=== PATIENT | male | born 1960 | race Caucasian/White ===

== ENCOUNTER → 2016-05-26 | Outpatient (CLI) | payer OTHER ==
--- NOTE | 2016-05-27 08:23 | CT ---
EXAMINATION TYPE: CT cervical spine wo con DATE OF EXAM: 05/26/2016 8:01 PM COMPARISON: 08/26/2006 HISTORY: Spinal stenosis in cervical region. Neck and left arm pain x [address] DLP: 794.00 mGycm Automated exposure control for dose reduction was used. TECHNIQUE: CT scan of the cervical spine is obtained without contrast, axial images are obtained, sa gittal and coronal reformatted images are also reviewed. FINDINGS: There is an anterior cervical fusion C4-C6. Some scoliosis is present. Degenerative disc ch anges are present. There is facet hypertrophy contributing to left foraminal narrowing C3-4. Uncovertebral joint hypertr ophy contributes to mild bilateral foraminal narrowing C4-5 uncovertebral joint hypertrophy contribut es to mild foraminal narrowing C5-6 IMPRESSION: 1. Postsurgical changes. 2. Degenerative disc changes. 3. Chronic mild foraminal narrowing upper cervical spine discussed above
== END | disposition home or self-care (01) ==
LOC: RADCTMAIN 19:25
PROVIDERS: ATTEND Neurological Surgery
DX: M99.71 Connective tissue and disc stenosis of intervertebral foramina of cervical region (principal); M50.30 Other cervical disc degeneration, unspecified cervical region; Z98.1 Arthrodesis status
CPT/HCPCS: 72125

== ENCOUNTER → 2016-06-29 | Outpatient (CLI) | payer OTHER ==
[2016-06-29 12:48] LABS: CH 31.5; CHCM 32.5; HCT 47.4 % (39.0-53.0); HDW 2.38; HGB 15.4 gm/dL (13.0-17.5); MCH 31.6 pg (25.0-35.0); MCHC 32.5 g/dL (31.0-37.0); MCV 97.3 fL (80.0-100.0); Mean Platelet Volume 7.3; RBC 4.87 m/uL (4.30-5.90); RDW 13.3 % (11.5-15.5); WBC 10.4 k/uL (3.8-10.6)
[2016-06-29 14:44] LABS: Erythrocyte Sedimentation Rate 2 mm/hr (0-15)
--- NOTE | 2016-06-29 17:34 | MR ---
EXAMINATION TYPE: MR thoracic spine wo/w con DATE OF EXAM: 06/29/2016 1:53 PM COMPARISON: Correlation MRI cervical spine 09/26/2009 and 01/06/2016 HISTORY: 55-year-old male other spondylosis with radiculopathy, thoracic spine pain. Technique: Multiplanar, multisequence images of the thoracic spine were obtained before and after adm inistration of 15 mL intravenous MultiHance gadolinium contrast. FINDINGS: There is extensive central T2 cord signal abnormality extending contiguously from the cervical spinal cord down to the T9-T10 level. This abnormal signal appears well-defined and most of the spinal cord mildly expanding it given the caliber change at the T10 level. There is a small disc herniation at T7-T8 with associated mixed Modic type I and type II endplate solomon nges anteriorly at this level. This does not contribute to any significant spinal canal stenosis. Add itional scattered small disc protrusions are present, again, not contributing to significant spinal c anal stenosis. Along with scattered facet degenerative change, there is variable mild neuroforaminal stenoses, moder ate at some levels such as on both sides at T7-T8. Scattered endplate Schmorl's nodes are present. No suspicious bone marrow placement. Vertebral body h eights are preserved and alignment is maintained. The post contrast series shows no abnormal enhancement within the spinal canal. The area of increased T2 signal shows low T1 postcontrast signal. There is a 8 mm T2 hyperintense lesion within the right lobe of thyroid gland incidentally seen. IMPRESSION: 1. Extensive central T2 cord signal abnormality extending contiguously from the cervical spine down t o the T9-T10 level. This mildly expands the cord given the caliber change at the T10 level. There is no associated enhancement. Findings are suspected to represent a syrinx probably due to canal stenosi s within the cervical spine. Clinical correlation recommended given the differential diagnosis provid ed on 01/06/2016. 2. Scattered spondylotic change within the cervical spine, greatest at T8-T9 where there is mixed Mod ic type I and type II endplate change and moderate neuroforaminal stenoses. No spinal canal stenosis.
== END | disposition home or self-care (01) ==
LOC: RADMRIMAIN 12:17
PROVIDERS: ATTEND Physician Assistant
DX: M99.72 Connective tissue and disc stenosis of intervertebral foramina of thoracic region (principal); M47.814 Spondylosis without myelopathy or radiculopathy, thoracic region; M50.30 Other cervical disc degeneration, unspecified cervical region; M47.22 Other spondylosis with radiculopathy, cervical region; G95.89 Other specified diseases of spinal cord; Z98.1 Arthrodesis status
CPT/HCPCS: 85652; 85027; 86140; 72157; A9577

== ENCOUNTER → 2016-09-16 | Outpatient (CLI) | payer OTHER ==
[2016-09-16 14:33] LABS: Basophils # (A) 0.1 k/uL (0-0.2); Basophils % (A) 1 %; CHCM 34.6; Eosinophils # (A) 0.3 k/uL (0-0.7); Eosinophils % (A) 3 %; HCT 45.7 % (39.0-53.0); HDW 2.54; HGB 15.6 gm/dL (13.0-17.5); Luc # (Auto) 0.21; Luc % (Auto) 3; Lymphocytes % (A) 37 %; MCH 31.7 pg (25.0-35.0); MCHC 34.1 g/dL (31.0-37.0); MCV 92.8 fL (80.0-100.0); Mean Platelet Volume 6.8; Monocytes # (A) 0.5 k/uL (0-1.0); Monocytes % (A) 7 %; Neutrophils # (A) 4.1 k/uL (1.3-7.7); Neutrophils % (A) 50 %; RBC 4.92 m/uL (4.30-5.90); RDW 13.6 % (11.5-15.5); WBC 8.1 k/uL (3.8-10.6); WBC (Perox) 7.59
[2016-09-16 14:45] LABS: ALT 36 U/L (21-72); AST 21 U/L (17-59); Alkaline Phosphatase 59 U/L (38-126); Anion Gap 12 mmol/L; Blood Urea Nitrogen 12 mg/dL (9-20); Calcium 9.6 mg/dL (8.4-10.2); Carbon Dioxide 27 mmol/L (22-30); Chloride 102 mmol/L (98-107); Glucose 101 mg/dL (74-99); INR 1.1 (<1.1); Non-African American GFR(MDRD) >60 (>60 ml/min/1.73 sqM); Partial Thromboplastin Time 25.6 sec (22.0-30.0); Potassium 4.3 mmol/L (3.5-5.1); Prothrombin Time 11.3 sec (9.0-12.0); Sodium 141 mmol/L (137-145); Total Bilirubin 1.1 mg/dL (0.2-1.3); Total Protein 7.5 g/dL (6.3-8.2)
[2016-09-20 06:31] LABS: Cotinine 180.1 ng/mL (<2.0); Nicotine 17.1 ng/mL (<2.0)
== END | disposition home or self-care (01) ==
LOC: LABWHC1 13:51
PROVIDERS: ATTEND Family Medicine
DX: Z01.812 Encounter for preprocedural laboratory examination (principal)
CPT/HCPCS: 36415; 80053; 80307; 80323; 85025; 85610; 85730

== ENCOUNTER → 2016-09-24 | Outpatient (CLI) | payer OTHER ==
[2016-09-24 14:52] LABS: Appearance,Urine Clear (Clear); Bilirubin,Urine Negative (Negative); Glucose,Urine (UA) Negative (Negative); Ketones,Urine Negative (Negative); Leukocyte Esterase,Urine Negative (Negative); Nitrite,Urine Negative (Negative); Protein,Urine Negative (Negative); Specific Gravity,Urine 1.004 (1.001-1.035); UA Billing (MACRO vs. MICRO) CHEM; Urobilinogen,Urine <2.0 mg/dL (<2.0)
== END | disposition home or self-care (01) ==
LOC: LABWHC1 14:19
PROVIDERS: ATTEND Orthopaedic Surgery
DX: Z01.812 Encounter for preprocedural laboratory examination (principal)
CPT/HCPCS: 81003; 86850; 86900; 86901; 87070; 87086

== ENCOUNTER 2017-12-24 11:25 | Observation (INO) | payer MEDICARE, OTHER ==
[2017-12-24] MEDS ORDERED: SODIUM CHLORIDE 0.9% 1,000 ML IV ONE (12:29)
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
[2017-12-24 12:43] LABS: Appearance,Urine Clear (Clear); Bilirubin,Urine Negative (Negative); Blood,Urine Negative (Negative); Color,Urine Light Yellow; Glucose,Urine (UA) Negative (Negative); Ketones,Urine Negative (Negative); Leukocyte Esterase,Urine Negative (Negative); Nitrite,Urine Negative (Negative); Protein,Urine Negative (Negative); Specific Gravity,Urine 1.003 (1.001-1.035); Urobilinogen,Urine <2.0 mg/dL (<2.0)
[2017-12-24 12:43] LABS: Basophils # (A) 0.1 k/uL (0-0.2); Basophils % (A) 0 %; Eosinophils # (A) 0.2 k/uL (0-0.7); Eosinophils % (A) 2 %; HCT 49.3 % (39.0-53.0); HGB 15.9 gm/dL (13.0-17.5); Lymphocytes # (A) 1.8 k/uL (1.0-4.8); Lymphocytes % (A) 14 %; MCH 30.6 pg (25.0-35.0); MCHC 32.3 g/dL (31.0-37.0); MCV 94.7 fL (80.0-100.0); Monocytes # (A) 0.9 k/uL (0-1.0); Monocytes % (A) 7 %; Neutrophils # (A) 10.1 k/uL (1.3-7.7); Neutrophils % (A) 76 %; Platelet Count 395 k/uL (150-450); RBC 5.21 m/uL (4.30-5.90); RDW 13.6 % (11.5-15.5); WBC 13.4 k/uL (3.8-10.6)
[2017-12-24 12:54] LABS: Amphetamine Screen,Urine Not Detected (NotDetected); Barbiturate Screen,Urine Not Detected (NotDetected); Benzodiazepines Screen,Urine Detected (NotDetected); Cocaine Screen,Urine Not Detected (NotDetected); Methadone Screen, Urine Not Detected (NotDetected); Opiate Screen,Urine Not Detected (NotDetected); Oxycodone Screen, Urine Not Detected (NotDetected); Phencyclidine Screen,Urine Not Detected (NotDetected); Tricyclic Antidepressant,Urine Not Detected (NotDetected); Urn Cannabinoid Scrn Detected (NotDetected)
[2017-12-24 12:59] LABS: ALT 28 U/L (21-72); AST 23 U/L (17-59); Albumin 4.6 g/dL (3.5-5.0); Alcohol <10 mg/dL; Alkaline Phosphatase 85 U/L (38-126); Anion Gap 11 mmol/L; Blood Urea Nitrogen 6 mg/dL (9-20); Calcium 9.8 mg/dL (8.4-10.2); Carbon Dioxide 27 mmol/L (22-30); Chloride 104 mmol/L (98-107); Glucose 144 mg/dL (74-99); Potassium 4.6 mmol/L (3.5-5.1); Sodium 142 mmol/L (137-145); Total Bilirubin 0.6 mg/dL (0.2-1.3); Total Protein 7.7 g/dL (6.3-8.2)
[2017-12-24 13:00] LABS: INR 1.1 (<1.2); Partial Thromboplastin Time 25.6 sec (22.0-30.0); Prothrombin Time 10.3 sec (9.0-12.0)
--- NOTE | 2017-12-24 13:06 | CT ---
EXAMINATION TYPE: CT brain wo con DATE OF EXAM: 12/24/2017 COMPARISON: NONE HISTORY: AMS CT DLP: 1150 mGycm Automated exposure control for dose reduction was used. FINDINGS: Central structures are midline. There is no evidence of hydrocephalus. No acute focal lesion, mass ef fect or midline shift is seen. I do not see evidence of intracranial blood. There is mild mucoperiosteal thickening involving the ethmoid air cells bilaterally. The remainder th e paranasal sinuses and mastoids are clear. The bony calvarium is intact. IMPRESSION: 1. NO ACUTE INTRACRANIAL ABNORMALITY. 2. MILD MUCOPERIOSTEAL DISEASE INVOLVING THE ETHMOID SINUSES.
[2017-12-24 13:20] LABS: Creatine Kinase MB 1.1 ng/mL (0.0-2.4); Troponin I 0.061 ng/mL (0.000-0.034)
[2017-12-24] MEDS ORDERED: HEPARIN SODIUM,PORCINE 5,000 UNIT/ML 1 ML VIAL IV ONE (13:58)
[2017-12-24] MEDS ORDERED: HEPARIN SODIUM,PORCINE 5,000 UNIT/ML 1 ML VIAL IV PRN (13:58)
[2017-12-24] MEDS ORDERED: ASPIRIN 81 MG PO STA (13:58)
[2017-12-24] MEDS ORDERED: NITROGLYCERIN SL TABS 0.4 MG TAB SUBLINGUAL PRN (13:58)
[2017-12-24] MEDS ORDERED: SODIUM CHLORIDE 0.9% 1,000 ML IV SCH (14:00)
[2017-12-24] MEDS ORDERED: HEPARIN SOD,PORK IN 0.45% NACL 25,000 UNIT in 0.45% NACL 1 500ML.BAG IV SCH (14:00)
[2017-12-24] MEDS ORDERED: AMPICILLIN-SULBACTAM 3 GM in SODIUM CHLORIDE 0.9% 100 ML IVPB STA (14:02)
--- NOTE | 2017-12-24 14:15 | XR ---
EXAMINATION TYPE: XR chest 2V DATE OF EXAM: 12/24/2017 HISTORY: altered mental status. REFERENCE: Previous study dated 10/01/2011. FINDINGS: There has been a previous ACDF in the lower cervical spine. The lungs are clear. Pleural spaces are clear. Heart size upper limits of normal. IMPRESSION: NO ACUTE CARDIOPULMONARY ABNORMALITY.
[2017-12-24 15:13] VITALS: BMI 29.7
[2017-12-24] MEDS: GABAPENTIN 300 MG CAP PO SCH ×2 (17:23→21:04)
[2017-12-24] MEDS ORDERED: NITROGLYCERIN OINT 1 INCH/GM PACKET TOPICAL SCH (18:00)
[2017-12-24] MEDS ORDERED: AMPICILLIN-SULBACTAM 1.5 GM in SODIUM CHLORIDE 0.9% 50 ML IVPB SCH (18:00)
[2017-12-24 18:29] LABS: Troponin I 0.055 ng/mL (0.000-0.034)
[2017-12-24] MEDS ORDERED: lamoTRIgine 100 MG TAB PO SCH (21:00)
[2017-12-24] MEDS ORDERED: MORPHINE SULFATE ER 60 MG TABLET PO SCH (21:00)
[2017-12-24 22:46] VITALS: BP 167/101; PULSE 78; RESP 19; TEMP 98.4
--- NOTE | 2017-12-24 23:45 | HP ---
HISTORY AND PHYSICAL DATE OF SERVICE: 12/24/2017 PRESENTING COMPLAINT: Lethargic. HISTORY OF PRESENTING COMPLAINT: This is a 57-year-old patient of Dr. Peterson whose chronic stable medical conditions include chronic pain, depression, arthritis, anxiety. The patient was sent in by his friend/roommate. They found him to be incoherent, lethargic. The patient takes a quite a few pain medications prescribed by his family doctor. Initially when I came to the room, the patient is very drowsy. When I repeatedly told him I am going to stop his pain medications, then he came right out and said he wanted his pain medications. During the history taking interview, the patient was still lethargic and speech was getting slurred. The patient did inform me that 2 days ago, the patient was cutting grass and he felt as if he was having a heart attack. He had pain across the chest which went to his neck and arm. The patient became short of breath, dizzy, lightheaded and started profusely sweating. Also, the patient has recently had an infected tooth pulled out and somewhere had to be pulled out. During the whole interview, he kept asking to make sure he gets his pain medications, otherwise, he will leave AMA. The patient did have a troponin blip in the ER. Currently, the patient is not having chest pain when I saw the patient earlier this afternoon. REVIEW OF SYSTEMS: CONSTITUTIONAL: Tired, lethargic. HEENT: None. RESPIRATORY: Occasional wheezing. CARDIOVASCULAR: As above. GASTROINTESTINAL: None. GENITOURINARY: None. MUSCULOSKELETAL: Arthritic pain in many joints. DERMATOLOGICAL: None. HEMATOLOGIC: None. LYMPHATICS: None. PSYCHIATRY: Anxious, but lethargic. NEUROLOGICAL: No focal weakness. PAST MEDICAL HISTORY: Arthritis in multiple joints, anxiety, depression. PAST SURGICAL HISTORY: Spine surgery. SOCIAL HISTORY: Smokes about a pack a day for many years. Drinks 6-12 beers on the weekends and some on the weekdays. Lives by himself. FAMILY HISTORY: Reviewed, noncontributory to presentation. HOME MEDICATIONS: 1. Lamictal 100 mg b.i.d. 2. Motrin 800 mg every 6 hours p.r.n. 3. Neurontin 300 mg q.i.d. and. 4. Gabapentin 800 mg p.o. q.i.d. 5. Cymbalta 60 mg a day. 6. Abilify 4 mg a day. 7. Celebrex 200 mg b.i.d. 8. Oxycodone 50 mg p.o. every 6 hours p.r.n. 9. MS Contin 60 mg p.o. q.12. 10.Xanax 1 mg q.8h p.r.n. ALLERGIES: None. EXAMINATION: VITAL SIGNS: On presentation, temperature 98.2, pulse 89, respirations 18, blood pressure 174/99, repeat blood pressure 154/77, pulse ox 99% on room air. GENERAL APPEARANCE: Average build, lying in bed, lethargic but arousable, able to answer questions. HEENT: External nose and ears normal. Oral cavity: Some tenderness in the lower tooth. NECK: JVD not raised. Mass not palpable. RESPIRATORY: Effort increased. LUNGS: Diminished breath sounds. Prolonged expiration. Some wheezing. CARDIOVASCULAR: First and second sounds normal. No edema. ABDOMEN: Soft, nontender. Liver and spleen not palpable. LYMPHATIC: No lymph nodes palpable in neck or axillae. PSYCHIATRY: Alert and oriented x3. Mood and affect anxious-appearing. NEUROLOGICAL: Pupils equal. No facial asymmetry. Pulses and sensation grossly intact. INVESTIGATIONS: White count 13.4, hemoglobin 15.9. Potassium 4.6, BUN 6, creatinine 0.70, troponin 0.061, 0.055. UA negative. Urine drug screen positive for benzodiazepine, marijuana. Serum alcohol less than 10. EKG interpreted by me tracing shows right bundle branch block and some other nonspecific findings. Chest x-ray film interpreted by me shows a bit of elevated right diaphragm, some prominence of the pulmonary artery. CT scan of the brain: Nil acute. ASSESSMENT: 1. Acute metabolic encephalopathy from medications, including patient is on a hefty dose of MS Contin 60 mg q.12, also oxycodone 50 mg every 6 hours p.r.n. and also getting Xanax 1 mg q.8h p.r.n. and patient also getting Neurontin 1100 four times a day. I am going to hold off the patient's gabapentin from 1100 down to 300 mg 4 times a day. We will stop his Xanax for right now. I did communicate with the patient about the same, but he wants to get this all his pain medications. I told him if he takes this, he may hurt himself, including killing himself. 2. Possible acute coronary event, could be 2 days ago, given that patient's troponin may be coming down. The patient could have had a myocardial infarction 2 days ago. Will need to be further evaluated with a 2-D echocardiogram. 3. Chronic nicotine dependence. Patient is a cigarette smoker. 4. Chronic obstructive pulmonary disease in a current cigarette smoker. 5. Chronic pain syndrome. Patient has multiple pain medications. 6. Recent tooth infection that was pulled out. 7. Depression, anxiety, not otherwise specified. PLAN: See my plan above. I repeatedly told the patient he is getting too many pain medications. He repeatedly kept asking me to get more, get his home medications on board. I told him it is not safe for him for the same. In the meantime, cardiology consultation was done with the nitro paste, aspirin. The patient also put on IV Unasyn for his tooth abscess from the ER and patient started on IV heparin. MMODL / MIREYAN: [id number] /
[2017-12-25] MEDS ORDERED: ARIPiprazole 2 MG TAB PO SCH (09:00)
[2017-12-25] MEDS ORDERED: ASPIRIN 325 MG TAB PO SCH (09:00)
[2017-12-25] MEDS ORDERED: DULoxetine HCL 60 MG CAPSULE.DR PO SCH (09:00)
--- NOTE | 2017-12-26 07:12 | DS ---
DISCHARGE SUMMARY DATE OF ADMISSION: 12/24/2017 DATE LEFT AGAINST MEDICAL ADVICE: 12/24/2017 FINAL DIAGNOSES: 1. Acute metabolic encephalopathy from multiple medications including pain medications, sedatives. 2. Possible acute coronary event, could be an acute myocardial infarction two days ago prior to coming. 3. Chronic nicotine dependence, patient is a cigarette smoker. 4. Chronic obstructive pulmonary disease in a current cigarette smoker. 5. Chronic pain syndrome. 6. Recent tooth infection, tooth was pulled out. 7. Depression, anxiety, not otherwise specified. HOSPITAL COURSE: Please see my H and P. Patient was sent in brought in by a friend as he found the patient to be lethargic. Patient does take many pain medications. Patient was really lethargic during his interview. Patient kept asking for more pain medications. I did stop the Xanax. Cut back on Neurontin. Today, in the evening patient wanted his Xanax which is a dangerous combination for a patient who is already lethargic. Patient had chest pain 2 days prior to coming in and had some troponin blip. I was concerned about underlying acute coronary syndrome including a recent PR. Patient later in the day, decided to go AMA. PHYSICAL EXAMINATION: On examination, patient was lethargic but arousable, able to answer questions. LUNGS: Decreased breath sounds. CARDIOVASCULAR: First and second sounds are normal. DISPOSITION: Left AMA. MMODL / IJN: [id number] /
== END 2017-12-24 22:52 | disposition left against medical advice (07) ==
LOC: EC 11:25 → 6SEL 13:58
PROVIDERS: ADMIT Hospitalist; ATTEND Hospitalist
DX: G92 Toxic encephalopathy (principal); T42.75XA Adverse effect of unspecified antiepileptic and sedative-hypnotic drugs, initial encounter; F17.210 Nicotine dependence, cigarettes, uncomplicated; J44.9 Chronic obstructive pulmonary disease, unspecified; G89.4 Chronic pain syndrome; F32.9 Major depressive disorder, single episode, unspecified; F41.9 Anxiety disorder, unspecified; Z53.21 Procedure and treatment not carried out due to patient leaving prior to being seen by health care provider; R53.83 Other fatigue; R77.8 Other specified abnormalities of plasma proteins; R07.89 Other chest pain; K04.7 Periapical abscess without sinus; T40.2X5A Adverse effect of other opioids, initial encounter; T42.4X5A Adverse effect of benzodiazepines, initial encounter; T42.6X5A Adverse effect of other antiepileptic and sedative-hypnotic drugs, initial encounter; Z79.899 Other long term (current) drug therapy; Z79.891 Long term (current) use of opiate analgesic; M19.90 Unspecified osteoarthritis, unspecified site; M54.9 Dorsalgia, unspecified; M54.2 Cervicalgia; Z87.820 Personal history of traumatic brain injury
CPT/HCPCS: 99285; 96376 ×2; 96365 ×2; 96367 ×2; 96366; 36415; 93005; 80053; 82140; 82550; 82553; 84484; 85025; 85610; 85730; 81003; 87040; 80306; 71046; 70450; G0378; G0480; J1644 ×2; J0295; 80320

== ENCOUNTER 2018-05-11 15:56 | Observation (INO) | payer MEDICARE, OTHER ==
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
[2018-05-11 16:37] LABS: Glucose,Whole Blood 124 mg/dL (75-99)
[2018-05-11 16:41] LABS: Basophils # (A) 0.1 k/uL (0-0.2); Basophils % (A) 1 %; Eosinophils # (A) 0.6 k/uL (0-0.7); Eosinophils % (A) 6 %; HCT 42.2 % (39.0-53.0); HGB 14.2 gm/dL (13.0-17.5); Lymphocytes # (A) 2.2 k/uL (1.0-4.8); Lymphocytes % (A) 21 %; MCH 31.3 pg (25.0-35.0); MCHC 33.5 g/dL (31.0-37.0); MCV 93.5 fL (80.0-100.0); Monocytes # (A) 0.5 k/uL (0-1.0); Monocytes % (A) 5 %; Neutrophils # (A) 6.6 k/uL (1.3-7.7); Neutrophils % (A) 65 %; Platelet Count 379 k/uL (150-450); RBC 4.51 m/uL (4.30-5.90); RDW 13.9 % (11.5-15.5); WBC 10.2 k/uL (3.8-10.6)
--- NOTE | 2018-05-11 16:50 | CT ---
EXAMINATION TYPE: CT brain wo con for TPA DATE OF EXAM: 05/11/2018 COMPARISON: 12/24/2017 HISTORY: ams CT DLP: 1166.4 mGycm Automated exposure control for dose reduction was used. FINDINGS: There is mild cerebral atrophy. There is no mass effect nor midline shift. There is no sign of intrac ranial hemorrhage. The calvarium is intact. IMPRESSION: CEREBRAL MILD ATROPHY. NO ACUTE INTRACRANIAL ABNORMALITY. NO CHANGE.
[2018-05-11 16:52] LABS: INR 1.1 (<1.2); Partial Thromboplastin Time 28.3 sec (22.0-30.0); Prothrombin Time 11.1 sec (9.0-12.0)
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
[2018-05-11 17:01] LABS: ALT 31 U/L (21-72); AST 16 U/L (17-59); Albumin 3.9 g/dL (3.5-5.0); Alcohol 10 mg/dL; Alkaline Phosphatase 73 U/L (38-126); Anion Gap 9 mmol/L; Blood Urea Nitrogen 8 mg/dL (9-20); Calcium 9.1 mg/dL (8.4-10.2); Carbon Dioxide 32 mmol/L (22-30); Chloride 99 mmol/L (98-107); Glucose 115 mg/dL (74-99); Potassium 4.4 mmol/L (3.5-5.1); Sodium 140 mmol/L (137-145); Total Bilirubin 0.3 mg/dL (0.2-1.3); Total Protein 6.7 g/dL (6.3-8.2)
[2018-05-11 17:08] LABS: Creatine Kinase MB 0.9 ng/mL (0.0-2.4); Troponin I 0.032 ng/mL (0.000-0.034)
[2018-05-11] MEDS ORDERED: ASPIRIN 325 MG TAB PO STA (17:45)
[2018-05-11 18:48] VITALS: BP 140/64; PULSE 68; RESP 18; TEMP 98.1
--- NOTE | 2018-05-11 20:30 | US ---
EXAMINATION TYPE: US carotid duplex BILAT DATE OF EXAM: 05/11/2018 COMPARISON: NONE CLINICAL HISTORY: Pain. Slurred speech. EXAM MEASUREMENTS: RIGHT: Peak Systolic Velocity (PSV) cm/sec ----- Right CCA: 91.2 ----- Right ICA: 106.2 ----- Right ECA: 206.5 ICA/CCA ratio: 1.2 RIGHT: End Diastole cm/sec ----- Right CCA: 19.4 ----- Right ICA: 31.3 ----- Right ECA: 21.9 LEFT: Peak Systolic Velocity (PSV) cm/sec ----- Left CCA: 78.6 ----- Left ICA: 84.5 ----- Left ECA: 192.1 ICA/CCA ratio: 1.1 LEFT: End Diastole cm/sec ----- Left CCA: 31.3 ----- Left ICA: 37.2 ----- Left ECA: 22.0 VERTEBRALS (direction of flow): Right Vertebral: Antegrade Left Vertebral: Antegrade Rhythm: Normal Elevated velocities in bilateral ECA. IMPRESSION: There is antegrade flow in the vertebral arteries. There is bilateral plaque formation. Images in measurements suggest 30% stenosis in both internal carotid arteries. There is elevated [place] both external carotid arteries that suggests 50-70% stenosis. Criteria for Assigning % of Stenosis / Diameter reduction (Estimation based on the indirect measurements of the internal carotid artery velocities (ICA PSV). 1. Normal (no stenosis)=ICA PSV < 125 cm/s: ratio < 2.0: ICA EDV<40 cm/s. 2. Less than 50% stenosis=ICA PSV < 125 cm/s: ratio < 2.0: ICA EDV<40 cm/s. 3. 50 to 69% stenosis=ICA PSV of 125 to 230 cm/s: ration 2.0 ? 4.0: ICA EDV 40-100 cm/s. 4. Greater than 70% stenosis to near occlusion= ICA PSV > 230 cm/s: ratio > 4.0: ICA EDV > 100 cm/s. 5. Near occlusion= ICA PSV velocities may be low or undetectable: variable ratio and ICA EDV. 6. Total occlusion=unable to detect flow.
[2018-05-11] MEDS ORDERED: ALPRAZolam 1 MG TAB PO PRN (20:31)
[2018-05-11] MEDS ORDERED: ARIPiprazole 2 MG TAB PO SCH (20:45)
[2018-05-11] MEDS ORDERED: lamoTRIgine 100 MG TAB PO SCH (21:00)
[2018-05-11] MEDS ORDERED: MORPHINE SULFATE ER 60 MG TABLET PO SCH (21:00)
[2018-05-11] MEDS ORDERED: GABAPENTIN 400 MG CAP PO SCH (22:00)
--- NOTE | 2018-05-12 07:14 | DS ---
DISCHARGE SUMMARY HISTORY AND PHYSICAL AND DISCHARGE SUMMARY DATE OF ADMISSION: 05/11/2018 DATE LEFT AGAINST MEDICAL ADVICE: 05/11/2018 HOSPITAL COURSE: This patient presented to the ER. This patient was not seen by me. The patient was admitted earlier today. Nurse called me that he is leaving AGAINST MEDICAL ADVICE. Patient was feeling fine. For more details refer to the ER note by Dr. Block. CALIN / SERGIO: [id number] /
[2018-05-12] MEDS ORDERED: DULoxetine HCL 30 MG CAPSULE.DR PO SCH (09:00)
[2018-05-12] MEDS ORDERED: ASPIRIN 325 MG TAB PO SCH (09:00)
[2018-05-12] MEDS ORDERED: DULoxetine HCL 60 MG CAPSULE.DR PO SCH (09:00)
== END 2018-05-11 21:03 | disposition left against medical advice (07) ==
LOC: EC 15:56 → 3SCARD 17:45
PROVIDERS: ADMIT Hospitalist; ATTEND Hospitalist
DX: G45.9 Transient cerebral ischemic attack, unspecified (principal); Z53.21 Procedure and treatment not carried out due to patient leaving prior to being seen by health care provider; Z87.820 Personal history of traumatic brain injury; M54.89 Other dorsalgia; M54.2 Cervicalgia; E72.20 Disorder of urea cycle metabolism, unspecified; F17.200 Nicotine dependence, unspecified, uncomplicated; Z79.891 Long term (current) use of opiate analgesic; Z79.899 Other long term (current) drug therapy
CPT/HCPCS: 99285 ×2; 36415; 93005; 80053; 82140; 82550; 82553; 84484; 85025; 85610; 85730; 71046; 93880; 70450; G0378; G0480; 80320

== ENCOUNTER 2018-05-13 08:02 | Inpatient (IN) | payer MEDICARE ==
[2018-05-13] MEDS ORDERED: SODIUM CHLORIDE 0.9% 1,000 ML IV STA (08:36)
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
[2018-05-13 09:34] LABS: Basophils % (A) 0 %; Eosinophils # (A) 0.5 k/uL (0-0.7); Eosinophils % (A) 4 %; HGB 14.8 gm/dL (13.0-17.5); Lymphocytes # (A) 1.4 k/uL (1.0-4.8); Lymphocytes % (A) 10 %; MCH 31.3 pg (25.0-35.0); MCHC 32.9 g/dL (31.0-37.0); MCV 95.1 fL (80.0-100.0); Mean Platelet Volume 7.4; Monocytes # (A) 0.8 k/uL (0-1.0); Monocytes % (A) 5 %; Neutrophils # (A) 11.1 k/uL (1.3-7.7); Neutrophils % (A) 79 %; Platelet Count 375 k/uL (150-450); RBC 4.74 m/uL (4.30-5.90); RDW 14.1 % (11.5-15.5); WBC 14.1 k/uL (3.8-10.6)
[2018-05-13 09:37] LABS: Appearance,Urine Clear (Clear); Bilirubin,Urine Negative (Negative); Blood,Urine Negative (Negative); Color,Urine Light Yellow; Glucose,Urine (UA) Negative (Negative); Ketones,Urine Negative (Negative); Leukocyte Esterase,Urine Negative (Negative); Nitrite,Urine Negative (Negative); Protein,Urine Negative (Negative); Specific Gravity,Urine 1.009 (1.001-1.035); Urobilinogen,Urine <2.0 mg/dL (<2.0)
[2018-05-13 09:43] LABS: Partial Thromboplastin Time 26.2 sec (22.0-30.0); Prothrombin Time 10.3 sec (9.0-12.0)
--- NOTE | 2018-05-13 09:46 | CT ---
EXAMINATION TYPE: CT brain wo con DATE OF EXAM: 05/13/2018 COMPARISON: Previous study dated 05/11/2018 HISTORY: frequent falls CT DLP: 1172.4 mGycm Automated exposure control for dose reduction was used. FINDINGS: Central structures are midline. There is no evidence of hydrocephalus. No acute focal lesion, mass ef fect or midline shift is seen. I do not see evidence of intracranial blood. There is mild prominence of the supraclinoid portion of the internal carotid artery on the left. No d efinite aneurysm is seen. There is mucoperiosteal thickening involving both maxillary sinuses as well as the ethmoid air cells. The frontal sinuses are hypoplastic. The mastoids are clear. The bony calvarium is intact. IMPRESSION: 1. NO ACUTE INTRACRANIAL ABNORMALITY. 2. MILD PROMINENCE OF THE LEFT SUPRACLINOID INTERNAL CAROTID ARTERY. A NONEMERGENT MRA OF THE [place] WOULD BE SUGGESTED. 3. MUCOPERIOSTEAL THICKENING INVOLVING THE MAXILLARY AND ETHMOID AIR CELLS BILATERALLY.
[2018-05-13 09:47] LABS: Albumin 4.1 g/dL (3.5-5.0); Alcohol <10 mg/dL; Anion Gap 5 mmol/L; Blood Urea Nitrogen 13 mg/dL (9-20); Calcium 9.2 mg/dL (8.4-10.2); Carbon Dioxide 36 mmol/L (22-30); Chloride 100 mmol/L (98-107); Glucose 111 mg/dL (74-99); Phosphorus 3.6 mg/dL (2.5-4.5); Sodium 141 mmol/L (137-145); Total Bilirubin 0.5 mg/dL (0.2-1.3); Total Protein 7.1 g/dL (6.3-8.2)
--- NOTE | 2018-05-13 09:53 | XR ---
EXAMINATION TYPE: XR chest 2V DATE OF EXAM: 05/13/2018 HISTORY: Weakness. REFERENCE: Previous study dated 05/11/2018. FINDINGS: There has been a previous ACDF in the lower cervical spine. The heart is mildly enlarged. There is vascular congestion and subtle interstitial change. Pleural sp aces are clear. IMPRESSION: I CANNOT EXCLUDE A MILD DEGREE OF CONGESTIVE HEART FAILURE.
[2018-05-13 09:59] LABS: ALT 27 U/L (21-72); AST 28 U/L (17-59); Alkaline Phosphatase 75 U/L (38-126); Magnesium 2.3 mg/dL (1.6-2.3); Potassium 5.6 mmol/L (3.5-5.1)
[2018-05-13 10:17] LABS: Creatine Kinase MB 2.2 ng/mL (0.0-2.4); Troponin I 0.02 ng/mL (0.000-0.034)
[2018-05-13] MEDS ORDERED: ONDANSETRON 4 MG/2 ML VIAL IVP PRN (10:51)
[2018-05-13] MEDS ORDERED: NALOXONE 0.4 MG/ML 1 ML VIAL IV PRN (10:51)
[2018-05-13] MEDS ORDERED: LORazepam 2 MG/ML INJ IV PRN (10:53)
[2018-05-13] MEDS ORDERED: AMOXIC-POT CLAV 875-125MG 1 EACH TAB PO STA (10:54)
[2018-05-13] MEDS: LORazepam 2 MG/ML INJ IV PRN ×6 (13:13→23:15)
[2018-05-13] MEDS: THIAMINE 100 MG TAB PO SCH ×2 (13:13→17:14)
[2018-05-13] MEDS ORDERED: cloNIDine 0.1 MG/24HR PATCH TRANSDERM SCH (18:00)
--- NOTE | 2018-05-13 18:09 | HP ---
HISTORY AND PHYSICAL DATE OF ADMISSION: 05/13/2018 DATE OF SERVICE: 05/13/2018 PRESENTING COMPLAINT: Weakness and falls. HISTORY OF PRESENTING COMPLAINT: This is a patient who is known to me from a prior admission in November of this year. Patient follows with Dr. Peterson. Patient's chronic stable medical conditions include depression, arthritis, anxiety. At that time, patient was sent in by his friends and roommates. Patient takes quite a few pain medications. At that time, patient was rather lethargic. During my interview, patient kept telling me that he will leave AMA if he does not get his pain medication. [place] the patient's pain medications were cut back, patient started turning around but on that admission patient LEFT AGAINST MEDICAL ADVICE. Had a concern about acute coronary syndrome at that time. Patient subsequently presented to the ER on 05/11/2018, was then seen by Dr. Block. On this occasion, patient had some slurred speech and also having weakness in both the hands, symptoms actually improved. Patient did report to the ER that he was drinking daily to Dr. Block for his notes. Subsequently, that in the evening patient LEFT AGAINST MEDICAL ADVICE from the ER yet again. Patient now again presented on 05/13/2018, that is today, of feeling having increased weakness and falls and now stating he is having slurred speech. When I came to the floor, the patient was somewhat delirious, mumbling. Patient had received Ativan earlier. Moving all 4 limbs, trying to get out of bed. There is no focal weakness. Patient looks a bit unkempt and cannot obtain any further history from the patient. REVIEW OF SYSTEMS: Cannot be done as patient is rather incoherent and delirious. PAST MEDICAL HISTORY: Chronic nicotine dependence, COPD, chronic pain syndrome, depression, anxiety. PAST SURGICAL HISTORY: Appendectomy, orthopedic surgery, spine surgery, neck surgery x2, right foot surgery. PSYCH HISTORY: Anxiety, depression. SOCIAL HISTORY: Patient is a daily smoker. Has been drinking regularly until about what is noted to be 2 weeks ago. Also drug use history reported to be for cocaine, marijuana, opiate prescription drug. FAMILY HISTORY: Patient cannot tell me. HOME MEDICATIONS: 1. Oxycodone 50 mg p.o. q.6 p.r.n. 2. Lamictal 100 mg p.o. b.i.d. 3. MS Contin 60 mg t.i.d. 4. Cymbalta 30 mg p.o. daily. 5. Cymbalta 60 mg p.o. daily. 6. Abilify 4 mg p.o. daily. 7. Xanax 1 mg p.o. b.i.d. ALLERGIES: None. PHYSICAL EXAMINATION: Temperature 98.1, pulse 86, respiratory rate 18, blood pressure 133/72, pulse ox 92% on 4 L. GENERAL APPEARANCE: Average build, lying in bed, delirious, unkempt. EYES: Pupils equal, conjunctivae normal. HEENT: External appearance of nose and ears normal, oral cavity dry. NECK: JVD not raised. Mass not palpable. RESPIRATORY: Effort increased. LUNGS: Decreased breath sounds. CARDIOVASCULAR: First and second sounds normal. No edema. ABDOMEN: Soft, nontender. Liver and spleen not palpable. LYMPHATIC: No lymph node palpable. PSYCHIATRY: Patient is delirious, mumbling. NEUROLOGICAL: Pupils equal, no facial asymmetry. Moving all 4 limbs about spontaneously. No focal weakness. INVESTIGATIONS: White count 14.1, hemoglobin 14.8, potassium 5.6, BUN 13, creatinine 0.78. UA negative. Serum alcohol less than 10. ASSESSMENT: 1. Acute delirium. This could be combination of withdrawing from his medications. Also could be alcohol withdrawal with DTs with acute delirium. 2. Chronic alcohol dependence. 3. Hyperkalemia. 4. Chronic pain medications. 5. Chronic obstructive pulmonary disease in a current smoker. 6. Chronic nicotine dependence. PLAN: At this point, will put the patient on a Catapres patch, Ativan p.r.n. Will keep a sitter. Do neuro checks. Patient's CT scan of the brain was unremarkable when he first presented. Patient's EKG has shown a right bundle branch block. Will have a sitter in place. MMODL / IJN: [id number] /
[2018-05-13] MEDS: SODIUM CHLORIDE 0.9% 1,000 ML IV SCH (18:24)
[2018-05-13] MEDS: ENOXAPARIN 40 MG/0.4 ML SYRINGE SQ SCH (18:24)
[2018-05-13] MEDS ORDERED: AMOXIC-POT CLAV 875-125MG 1 EACH TAB PO SCH (21:00)
[2018-05-14] MEDS: LORazepam 2 MG/ML INJ IV PRN ×8 (00:47→10:58)
[2018-05-14 07:44] LABS: Basophils # (A) 0.1 k/uL (0-0.2); Basophils % (A) 0 %; Eosinophils # (A) 0.1 k/uL (0-0.7); Eosinophils % (A) 1 %; HCT 40.9 % (39.0-53.0); HGB 13.2 gm/dL (13.0-17.5); Lymphocytes # (A) 1.6 k/uL (1.0-4.8); Lymphocytes % (A) 10 %; MCH 30.1 pg (25.0-35.0); MCHC 32.2 g/dL (31.0-37.0); MCV 93.4 fL (80.0-100.0); Mean Platelet Volume 6.5; Monocytes % (A) 6 %; Neutrophils # (A) 12.2 k/uL (1.3-7.7); Neutrophils % (A) 80 %; Platelet Count 350 k/uL (150-450); RBC 4.38 m/uL (4.30-5.90); WBC 15.3 k/uL (3.8-10.6)
[2018-05-14 08:02] LABS: ALT 31 U/L (21-72); AST 23 U/L (17-59); Albumin 3.9 g/dL (3.5-5.0); Alkaline Phosphatase 81 U/L (38-126); Anion Gap 8 mmol/L; Blood Urea Nitrogen 10 mg/dL (9-20); Calcium 8.8 mg/dL (8.4-10.2); Carbon Dioxide 28 mmol/L (22-30); Chloride 103 mmol/L (98-107); Glucose 105 mg/dL (74-99); Potassium 3.9 mmol/L (3.5-5.1); Sodium 139 mmol/L (137-145); Total Protein 6.7 g/dL (6.3-8.2)
[2018-05-14] MEDS: SODIUM CHLORIDE 0.9% 1,000 ML IV SCH ×2 (09:57→15:25)
[2018-05-14] MEDS: THIAMINE 100 MG in SODIUM CHLORIDE 0.9% 100 ML IVPB SCH ×2 (09:57→20:10)
[2018-05-14] MEDS ORDERED: HALOPERIDOL LACTATE 5 MG/ML 1 ML VIAL IVP ONE (11:45)
[2018-05-14] MEDS ORDERED: LORazepam 2 MG/ML INJ IV STA (11:45)
[2018-05-14] MEDS ORDERED: LORazepam 2 MG/ML INJ IV PRN (12:26)
[2018-05-14] MEDS: ENOXAPARIN 40 MG/0.4 ML SYRINGE SQ SCH (12:33)
[2018-05-14] MEDS: HYDROmorphone 1 MG/ML 1 ML SYRINGE IVP PRN ×6 (13:55→22:10)
--- NOTE | 2018-05-14 13:55 | XR ---
EXAMINATION TYPE: XR ankle complete RT , 3 VIEWS DATE OF EXAM ORDERED: 05/14/2018 HISTORY: swelling, recent falls . COMPARISON: None. FINDINGS: There is been previous sideplate and screw fixation of the distal right fibula. There is a n oblique fracture through the mid diaphysis of the left fibula only partially seen on this study. Th ere is cystic change in the calcaneus which may represent an intraosseous lipoma. IMPRESSION: 1. SIDEPLATE AND SCREW FIXATION OF THE DISTAL FIBULA. 2. SPIRAL FRACTURE OF THE MID DIAPHYSIS OF THE FIBULA NOT TOTALLY VISUALIZED ON THIS EXAMINATION.
--- NOTE | 2018-05-14 13:57 | XR ---
EXAMINATION TYPE: XR tibia fibula RT , 2 VIEWS DATE OF EXAM ORDERED: 05/14/2018 HISTORY: leg pain, redness. COMPARISON: None. FINDINGS: There has been sideplate and screw fixation of the distal right fibula. There is an acute, oblique fracture through the mid diaphysis of the right fibula. This is minimally displaced. No othe r bony lesion is seen. IMPRESSION: 1. SIDEPLATE AND SCREW FIXATION OF THE DISTAL RIGHT LATERAL MALLEOLUS. 2. MILDLY DISPLACED OBLIQUE FRACTURE THROUGH THE MID DIAPHYSIS OF THE FIBULA. CODE A: INITIAL ENCOUNTER FOR CLOSED FRACTURE.
--- NOTE | 2018-05-14 13:58 | CONS ---
CONSULTATION PULMONARY CRITICAL CARE CONSULTATION: DATE OF SERVICE: 05/14/2018 This is a 57-year-old male who presented to the emergency department with complaints of increased weakness and falling. He apparently was recently in the ER and signed himself out against medical advice. He comes in with mental status changes. He has slurred speech. Very weak. Lethargic. Clearly not quite with it. He apparently has been having falls and weakness. I am not sure where the history came from. He himself can give no history. He did have a CT scan of the brain which was negative. Apparently a drug screen was not done. The patient was seen by the primary and thought to be having alcohol withdrawal syndrome. His CIWA score was quite high and the patient was transferred down to the ICU. He is currently on 4 L nasal cannula. He is getting a saline IV at 100 mL an hour. I just asked the nurse to give him 2 more mg of Ativan and 4 mg of Haldol IV. No other history can be obtained from this patient. HOME MEDICATIONS: His home medications include MS Contin, oxycodone, Lamictal, Cymbalta, Abilify, and Xanax. ALLERGIES: Denied. MEDICAL HISTORY: Not able to be obtained. I suspect he has some sort of psychiatric illness based on his medications. Apparently, he has a vague history of traumatic brain injury as well. SURGICAL HISTORY: Includes some sort of spine procedure. SOCIAL HISTORY: Apparently positive for current everyday alcohol use. He also is a heavy drinker and apparently uses illicit drugs. Again, this history is passed on by the nurses. No reported family history or occupation history. REVIEW OF SYSTEMS: Review of systems cannot be obtained from this patient because of his mental status. PHYSICAL EXAMINATION: Vital signs include temperature 98.5, heart rate 96, respiratory rate 26, blood pressure 182/97 with mean of 125. 4 L saturation is 92-94 percent. Appears quite restless and agitated. Has a very slurred speech. HEENT examination is grossly unremarkable. Mucous membranes dry. Teeth are in poor repair. NECK: Supple. Full range of motion. Cardiovascular examination reveals regular rhythm and rate. Heart rate about 100 beats per minute. S1, S2 normal. LUNGS: A few scattered rhonchi. No wheezes or crackles. Abdomen is soft. Extremities are intact. The right ankle is swollen and ecchymotic. LAB DATA: Reviewed. White count 15.3, hemoglobin 13.2, hematocrit 40.9, platelet count normal. PT/INR PTT normal. Sodium, potassium, chloride, CO2 all normal. Anion gap normal. BUN and creatinine were 10 and 0.56. The rest of his comprehensive metabolic profile looks pretty normal. His urine was negative. Serum alcohol less than 10. No drug screen was done. The patient had a chest x-ray suggested some possible mild congestive heart failure. CT of the brain showed no acute intracranial abnormality. Medications are reviewed. Currently, we are using clonidine, Lovenox, Haldol Ativan, Narcan, thiamin, and a basic IV to control the patient. ASSESSMENT: 1. Possible alcohol withdrawal syndrome/delirium tremens. 2. History of chronic alcohol abuse. 3. History of ongoing and daily tobacco use. 4. Rule out right ankle injury. 5. History of traumatic brain injury. 6. History of underlying psychologic/psychiatric illness of unclear etiology, based on current medications. 7. Vague history of polysubstance abuse. PLAN: The patient will get IV fluids. The patient will get Ativan and Haldol for sedation. Additional recommendations and suggestions are forthcoming. Please see my orders. Prognosis is guarded. The patient will get thiamine to prevent Wernicke's syndrome. Additional recommendations and suggestions are forthcoming. Nicotine patch will also be added. The patient will get a nicotine patch. MMODL / MIREYAN: [id number] / MTDD
[2018-05-14] MEDS ORDERED: cloNIDine 0.3 MG/24HR PATCH TRANSDERM SCH (14:00)
--- NOTE | 2018-05-14 19:02 | P.CN ---
Psychiatric Consult - . Consult date: 05/14/18 Consult:: 05/14/18 18:50 IDENTIFYING DATA: 57-year-old male patient HPI: patient admitted to the medical floor at [facility] with per chart history of weakness and falls. Per chart history had a prior admission in November of this year but he left AMA.per chart history also was in the emergency room recently and left AGAINST MEDICAL ADVICE from the ER. Per chart history there is some notation that he was drinking daily. There is chart notation that he was having issue with slurred speech.admission assessment was acute delirium with concerns of withdrawing from medications or alcohol.patient currently is in restraints and is not able to maintain alertness. PAST PSYCHIATRIC HISTORY: patient is known to me from the outpatient setting.he does have history of head injury and mood disorder.most recent psychotropic medications have been Xanax, Abilify, Cymbalta and Lamictal. PMH:COPD, chronic pain syndrome, history of head injury ALLERGIES: no known ALLERGIES MEDICATIONS:clonidine, Lovenox, Dilaudid when necessary, Ativan when necessary, Narcan when necessary, Habitrol patch, thiamine CHEMICAL DEPENDENCY HISTORY: per chart history alcohol use.it is noted that he has been on opioid pain medication FAMILY PSYCHIATRIC HISTORY: not known at this time FAMILY CHEMICAL DEPENDENCY HISTORY:not known at this time SOCIAL HISTORY:currently single, currently living situation not known MENTAL STATUS EXAM: he is not able to maintain alertness. He is not currently able to answer questions. He does move lower extremity.currently not exhibiting any significant agitation.current exam is limited due to current mental status. IMPRESSIONS:delirium, possible cause being withdrawal versus other etiology; history of mood disorder; likely alcohol use disorder, rule out opioid use disorder PLAN: continue to treat possible causes of delirium; Ativan when necessary is currently ordered, can be used for alcohol withdrawal symptoms as well as any significant agitation. Would continue to hold psychotropic medications at this point in time. Psychiatry can follow up.
[2018-05-14 20:51] LABS: Glucose,Whole Blood 100 mg/dL (75-99)
[2018-05-14 23:53] LABS: Glucose,Whole Blood 98 mg/dL (75-99)
[2018-05-15] MEDS: HYDROmorphone 1 MG/ML 1 ML SYRINGE IVP PRN ×4 (00:08→11:20)
[2018-05-15] MEDS: SODIUM CHLORIDE 0.9% 1,000 ML IV SCH ×3 (00:09→20:40)
--- NOTE | 2018-05-15 01:13 | PN ---
PROGRESS NOTE DATE OF SERVICE: May 14, 2018. PRESENTING COMPLAINT: Delirious. INTERVAL HISTORY: This patient presented with acute delirium also felt to be alcohol withdrawal syndromes, became rather agitated, more delirious, now being controlled with Ativan. CIWA score really went up. I transferred the patient to the ICU. The patient then was switched to Ativan and Dilaudid with some better response. The patient had to be restrained. Also got a sitter for the same. The patient was seen by Psychiatry who recommended to hold off the antipsychotics. The patient under the care of Dr. Nieves from Critical Care. Also getting IV fluids. The patient does try to move about. REVIEW OF SYSTEMS: Cannot be done as patient is rather delirious. CURRENT MEDICATIONS: Reviewed that include Catapres patch 0.3, Lovenox, Dilaudid p.r.n., Ativan p.r.n., nicotine patch, normal saline IV, thiamine. PHYSICAL EXAMINATION: VITAL SIGNS: Temperature 98.2, pulse 76, respiration 20, blood pressure 139/77, pulse ox 95 percent on 4 L. GENERAL APPEARANCE: Lying in bed, delirious, moving about. EYES: Pupils equal. Conjunctivae normal. NECK: JVD not raised. Mass not palpable. RESPIRATORY: Effort increased. LUNGS: Decreased breath sounds. CARDIOVASCULAR: 1st and 2nd sounds normal. No edema. ABDOMEN: Soft, nontender. Liver and spleen not palpable. PSYCHIATRY: Unable to assess. Patient rather delirious. NEUROLOGICAL: Pupils equal. No facial asymmetry. Moving all 4 limbs. In restraints. INVESTIGATIONS: White count 15.3, hemoglobin 10.2, potassium 3.9, BUN 10, creatinine 0.56. Serum alcohol less than 10. ASSESSMENT: 1. Acute severe delirium worsening could be combination of withdrawal from medications and also DTs from alcohol, worsening. Patient had to be moved to the ICU. 2. Chronic alcohol dependence. 3. Hyperkalemia, corrected. 4. Chronic pain medication. 5. Chronic obstructive pulmonary disease in a current smoker. 6. Chronic nicotine dependence. 7. Right bundle branch block. 8. Right ankle fracture as per x-ray for which orthopedics was consulted. PLAN: Continue patient on Ativan, Dilaudid, also current medications including the Catapres patch. Patient has got a sitter in place. Follow up with the box car checker. Will also follow up with Psychiatry of the case. At this point, Orthopedics wants to be conservative. Did ask the nurse to do an Derek wrap with support on the side. MMODL / IJN: [id number] /
[2018-05-15 05:09] LABS: Basophils # (A) 0.1 k/uL (0-0.2); Basophils % (A) 0 %; Eosinophils # (A) 0.3 k/uL (0-0.7); Eosinophils % (A) 2 %; HCT 40.8 % (39.0-53.0); HGB 13.4 gm/dL (13.0-17.5); Lymphocytes # (A) 2.1 k/uL (1.0-4.8); Lymphocytes % (A) 14 %; MCH 30.5 pg (25.0-35.0); MCHC 32.9 g/dL (31.0-37.0); MCV 92.7 fL (80.0-100.0); Mean Platelet Volume 7.1; Monocytes % (A) 7 %; Neutrophils # (A) 10.6 k/uL (1.3-7.7); Neutrophils % (A) 74 %; Platelet Count 344 k/uL (150-450); WBC 14.4 k/uL (3.8-10.6)
[2018-05-15 05:12] LABS: Anion Gap 6 mmol/L; Blood Urea Nitrogen 11 mg/dL (9-20); Calcium 8.5 mg/dL (8.4-10.2); Carbon Dioxide 26 mmol/L (22-30); Chloride 106 mmol/L (98-107); Glucose 88 mg/dL (74-99); Magnesium 2.3 mg/dL (1.6-2.3); Phosphorus 2.7 mg/dL (2.5-4.5); Potassium 4.3 mmol/L (3.5-5.1); Sodium 138 mmol/L (137-145)
[2018-05-15 06:10] LABS: Glucose,Whole Blood 88 mg/dL (75-99)
--- NOTE | 2018-05-15 07:07 | XR ---
EXAMINATION TYPE: XR chest 1V DATE OF EXAM: 05/15/2018 COMPARISON: 05/13/2018 HISTORY: Shortness of breath and congestive heart failure TECHNIQUE: Single frontal view of the chest is obtained. FINDINGS: There is slightly improved mild pulmonary vascular congestion. No sizable pleural effusion or pneumothorax. Postsurgical changes of the cervical spine are partially visualized. Cardiomediasti nal silhouette is upper limits of normal. Osseous structures are grossly intact. IMPRESSION: Minimal improvement of the pulmonary vascular congestion, likely on the basis of improvi ng congestive heart failure.
[2018-05-15] MEDS: NICOTINE 21MG/24HR PATCH TRANSDERM SCH (09:54)
[2018-05-15] MEDS: ENOXAPARIN 40 MG/0.4 ML SYRINGE SQ SCH (09:55)
[2018-05-15] MEDS: THIAMINE 100 MG in SODIUM CHLORIDE 0.9% 100 ML IVPB SCH ×2 (09:55→20:40)
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
--- NOTE | 2018-05-15 11:46 | XR ---
EXAMINATION TYPE: XR foot complete RT DATE OF EXAM: 05/15/2018 CLINICAL HISTORY: Right foot pain and swelling TECHNIQUE: Frontal, lateral, and oblique images of the right foot are obtained. COMPARISON: None FINDINGS: There is no acute fracture/dislocation evident in the right foot. There is severe joint sp jamison narrowing, osseous remodeling, and large marginal osteophytes at the first metatarsophalangeal peggy int. Degenerative changes to a lesser degree are seen at the distal interphalangeal joints. Incidenta lly noted os peroneum is seen. There is surgical fixation of the lateral malleolus with heterotopic o ssification. IMPRESSION: There is no acute fracture or dislocation in the right foot. Extensive degenerative gutiérrez ges with osseous remodeling of the first metatarsal phalangeal joint and degenerative changes to less er degree of the distal interphalangeal joints.
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
[2018-05-15 12:08] LABS: Glucose,Whole Blood 97 mg/dL (75-99)
[2018-05-15] MEDS: IPRATROPIUM-ALBUTEROL 3 ML NEB INHALATION SCH ×3 (12:43→19:51)
[2018-05-15] MEDS ORDERED: cloNIDine 0.3 MG/24HR PATCH TRANSDERM SCH (14:00)
[2018-05-15] MEDS: MORPHINE SULFATE ER 60 MG TABLET PO SCH ×2 (16:46→20:40)
[2018-05-15] MEDS: lamoTRIgine 100 MG TAB PO SCH (20:40)
[2018-05-15] MEDS: FAMOTIDINE 20 MG TAB PO SCH (20:40)
[2018-05-15] MEDS ORDERED: NAPROXEN 250 MG TAB PO SCH (21:00)
[2018-05-16 05:10] LABS: Basophils % (A) 0 %; Eosinophils # (A) 0.4 k/uL (0-0.7); Eosinophils % (A) 4 %; HCT 38.1 % (39.0-53.0); HGB 12.5 gm/dL (13.0-17.5); Lymphocytes # (A) 2.7 k/uL (1.0-4.8); Lymphocytes % (A) 27 %; MCH 30.3 pg (25.0-35.0); MCHC 32.7 g/dL (31.0-37.0); MCV 92.6 fL (80.0-100.0); Mean Platelet Volume 7.2; Monocytes # (A) 0.6 k/uL (0-1.0); Monocytes % (A) 6 %; Neutrophils # (A) 5.9 k/uL (1.3-7.7); Neutrophils % (A) 59 %; Platelet Count 295 k/uL (150-450); RBC 4.12 m/uL (4.30-5.90); RDW 13.8 % (11.5-15.5); WBC 9.9 k/uL (3.8-10.6)
[2018-05-16 05:39] LABS: Anion Gap 7 mmol/L; Blood Urea Nitrogen 9 mg/dL (9-20); Calcium 8.3 mg/dL (8.4-10.2); Carbon Dioxide 24 mmol/L (22-30); Chloride 107 mmol/L (98-107); Glucose 96 mg/dL (74-99); Magnesium 2.3 mg/dL (1.6-2.3); Potassium 3.8 mmol/L (3.5-5.1); Sodium 138 mmol/L (137-145)
[2018-05-16] MEDS ORDERED: Potassium Replacement Protocol 1 EACH MISC MISCELLANE PRN (05:45)
--- NOTE | 2018-05-16 05:55 | PN ---
PROGRESS NOTE DATE OF SERVICE: 05/15/2018 PRESENTING COMPLAINT: Delirious. INTERVAL HISTORY: This patient presented with acute delirium, felt to be from combination of alcohol withdrawal and some pain medications that he takes. Today in the evening, patient doing much better. Sitting up in a chair, answering actually questions, a little bit lethargic. Has not required Ativan. Did tolerate some diet. It has now been noted that the patient's right ankle does not have a fracture as per Orthopedics. Has a sitter. REVIEW OF SYSTEMS: Done for constitutional, cardiovascular, GI, pulmonary; relevant findings as above. The patient does inform that he fell at home and that is how he sprained his ankle. CURRENT MEDICATIONS: Current medications are reviewed that include DuoNeb, Abilify, Catapres, Cymbalta, Lovenox, Lamictal, Ativan, MS Contin, thiamine. PHYSICAL EXAMINATION: On examination, temperature 98.5, pulse 64, respiration 18, blood pressure 133/60, pulse ox 98% on room air. GENERAL APPEARANCE: Sitting up in a chair, awake, but a little bit lethargic. EYES: Pupils equal. Conjunctivae normal. NECK: JVD not raised. Mass not palpable. RESPIRATORY: Effort increased LUNGS: Decreased breath sounds. CARDIOVASCULAR: First and second sounds normal. No edema. ABDOMEN: Soft, nontender. Liver and spleen not palpable. PSYCHIATRY: Patient is able to answer questions rather appropriately though lethargic. EXTREMITIES: Right foot in a brace. INVESTIGATIONS: White count 14.4, hemoglobin 13.4, potassium 4.3, BUN 11, creatinine 0.54. ASSESSMENT: 1. Acute severe delirium worsening, a combination of withdrawal from his medications and alcoholic delirium tremens, with improvement. 2. Chronic alcohol dependence. 3. Hyperkalemia, corrected. 4. Chronic pain medication. 5. Chronic obstructive pulmonary disease in a current smoker. 6. Chronic nicotine dependence. 7. Right bundle branch block. 8. Right ankle fracture, not present as determined by Orthopedics, just a sprain. Patient has got a boot in place. PLAN: At this point, the patient Dilaudid will be discontinued. We will use naproxen for pain. The patient at least on 2 or 3 occasions that I have known has always left AMA demanding his pain medications that often times makes him delirious and lethargic. The patient has been put back on his long-acting MS Contin, the acting has been held off. We will await further review from psychiatrist to see if the medication needs to be further adjusted. This was discussed with the patient. Will DC the Catapres in the morning and use beta riki. MMODL / IJN: [id number] /
[2018-05-16] MEDS: SODIUM CHLORIDE 0.9% 1,000 ML IV SCH (06:55)
[2018-05-16] MEDS: IPRATROPIUM-ALBUTEROL 3 ML NEB INHALATION SCH ×4 (07:12→20:00)
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
[2018-05-16] MEDS: THIAMINE 100 MG in SODIUM CHLORIDE 0.9% 100 ML IVPB SCH (08:52)
[2018-05-16] MEDS: ARIPiprazole 2 MG TAB PO SCH (08:55)
[2018-05-16] MEDS: MORPHINE SULFATE ER 60 MG TABLET PO SCH ×3 (08:55→21:56)
[2018-05-16] MEDS: DULoxetine HCL 60 MG CAPSULE.DR PO SCH (08:55)
[2018-05-16] MEDS: METOPROLOL TARTRATE 25 MG TAB PO SCH ×2 (08:55→20:48)
[2018-05-16] MEDS: lamoTRIgine 100 MG TAB PO SCH ×2 (08:55→20:48)
[2018-05-16] MEDS: DULoxetine HCL 30 MG CAPSULE.DR PO SCH (08:55)
[2018-05-16] MEDS: NAPROXEN 250 MG TAB PO SCH ×3 (08:56→21:58)
[2018-05-16] MEDS: FAMOTIDINE 20 MG TAB PO SCH ×2 (08:56→20:48)
[2018-05-16] MEDS: ENOXAPARIN 40 MG/0.4 ML SYRINGE SQ SCH (08:56)
[2018-05-16] MEDS: NICOTINE 21MG/24HR PATCH TRANSDERM SCH (08:57)
[2018-05-16] MEDS ORDERED: POTASSIUM CHLORIDE ER 20 MEQ TAB.ER PO SCH (09:00)
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
[2018-05-16] MEDS: THIAMINE 100 MG TAB PO SCH (20:49)
--- NOTE | 2018-05-16 23:23 | PN ---
PROGRESS NOTE DATE OF SERVICE: 05/16/2018. PRESENTING COMPLAINT: Tired. INTERVAL HISTORY: This patient presented with acute delirium, felt to be combination of alcohol withdrawal and possibly some medications. Doing much better. The patient also got a sprain in the right foot with a supportive boot. Did tolerate some diet. The patient is back on his home pain medications. Overall doing better, communicating. Still has some wheezing. REVIEW OF SYSTEMS: Done for constitutional, cardiovascular, GI, pulmonary; relevant findings as above. The patient has some wheezing. Some pain in the right foot. CURRENT MEDICATIONS: Reviewed. PHYSICAL EXAMINATION: Temperature 98.2, pulse 52, respirations 18, blood pressure 114/78, pulse ox 92 percent on room air. GENERAL APPEARANCE: Sitting up in a chair, a bit more awake. EYES: Pupils equal. Conjunctivae normal. NECK: JVD not raised. Mass not palpable. RESPIRATORY: Effort increased. LUNGS: Decreased breath sounds. Some wheezing. CARDIOVASCULAR: 1st and 2nd sounds. No edema. ABDOMEN: Soft, nontender. Liver and spleen not palpable. PSYCHIATRY: Answering questions appropriately. EXTREMITIES: Right foot in a brace. INVESTIGATIONS: White count 9.9, hemoglobin 12.5, potassium 3.8. ASSESSMENT: 1. Acute severe delirium, combination of probably medications and alcoholic DTs, with significant improvement. 2. Chronic alcohol dependence. 3. Hypokalemia, corrected. 4. Chronic pain medication. 5. Chronic obstructive pulmonary disease in a current smoker. 6. Chronic nicotine dependence. 7. Right bundle branch block. 8. Right ankle sprain. Patient has boot in place. PLAN: Patient is back on his home medications and naproxen for the foot. All IV pain medications have been discontinued. Patient's blood pressure is decent. Patient has been moved out of the ICU, hopefully can be discharged tomorrow. Spoke to the Motor Electrician. CALIN / MIREYAN: [id number] /
[2018-05-16] MEDS: predniSONE 20 MG TAB PO SCH (23:26)
[2018-05-17 05:39] LABS: Basophils % (A) 0 %; Eosinophils # (A) 0.1 k/uL (0-0.7); Eosinophils % (A) 2 %; HCT 40.3 % (39.0-53.0); HGB 12.7 gm/dL (13.0-17.5); Lymphocytes % (A) 13 %; MCH 29.3 pg (25.0-35.0); MCHC 31.5 g/dL (31.0-37.0); Mean Platelet Volume 6.9; Monocytes # (A) 0.2 k/uL (0-1.0); Monocytes % (A) 3 %; Neutrophils # (A) 6.4 k/uL (1.3-7.7); Neutrophils % (A) 81 %; Platelet Count 331 k/uL (150-450); RBC 4.33 m/uL (4.30-5.90); WBC 7.9 k/uL (3.8-10.6)
[2018-05-17 05:50] LABS: Anion Gap 7 mmol/L; Blood Urea Nitrogen 10 mg/dL (9-20); Carbon Dioxide 23 mmol/L (22-30); Chloride 108 mmol/L (98-107); Glucose 144 mg/dL (74-99); Potassium 4.9 mmol/L (3.5-5.1); Sodium 138 mmol/L (137-145)
[2018-05-17] MEDS: IPRATROPIUM-ALBUTEROL 3 ML NEB INHALATION SCH ×2 (07:45→11:35)
[2018-05-17] MEDS: DULoxetine HCL 60 MG CAPSULE.DR PO SCH (08:32)
[2018-05-17] MEDS: NICOTINE 21MG/24HR PATCH TRANSDERM SCH (08:32)
[2018-05-17] MEDS: FAMOTIDINE 20 MG TAB PO SCH (08:32)
[2018-05-17] MEDS: ENOXAPARIN 40 MG/0.4 ML SYRINGE SQ SCH (08:32)
[2018-05-17] MEDS: predniSONE 20 MG TAB PO SCH (08:33)
[2018-05-17] MEDS: METOPROLOL TARTRATE 25 MG TAB PO SCH (08:33)
[2018-05-17] MEDS: ARIPiprazole 2 MG TAB PO SCH (08:33)
[2018-05-17] MEDS: lamoTRIgine 100 MG TAB PO SCH (08:33)
[2018-05-17] MEDS: DULoxetine HCL 30 MG CAPSULE.DR PO SCH (08:34)
[2018-05-17] MEDS: NAPROXEN 250 MG TAB PO SCH (08:34)
[2018-05-17] MEDS: MORPHINE SULFATE ER 60 MG TABLET PO SCH (08:35)
[2018-05-17] MEDS: THIAMINE 100 MG TAB PO SCH (08:35)
[2018-05-17 10:22] VITALS: BMI 30.4
[2018-05-17 10:51] VITALS: RESP 18
[2018-05-17] MEDS ORDERED: ARTIFICIAL TEARS-HYPROMELLOSE DROPS 15 ML BTL BOTH EYES PRN (11:18)
[2018-05-17 12:03] VITALS: BP 141/81; PULSE 60; TEMP 97.9
--- NOTE | 2018-05-17 17:21 | P.PN ---
Subjective Progress Note Date: 05/17/18 On today's evaluation of 05/17/2018, the patient is awake and alert. No altered mentation. No headaches. No confusion. No delirium. No shakiness. The patient has a cast in his right lower extremity and he is able to bear weight. Pain is under good control. Cardiac rhythm remains sinus. No other significant events over the past 24 hours. He has been chronic pain medication with a combination of MS Contin and oxycodone. He is also on the psychiatric medication combination including Cymbalta, Abilify and Xanax. Pulse ox on room air is above 90%. CAT scan of the event, but admission was negative. Yesterday 's history of polysubstance abuse. Objective - Vital Signs Vital signs: Vital Signs Temp 97.9 F 05/17/18 12:00 Pulse 60 05/17/18 12:00 Resp 18 05/17/18 12:00 BP 141/81 05/17/18 12:00 Pulse Ox 95 05/17/18 12:00 Intake & Output 05/16/18 05/17/18 05/17/18 18:59 06:59 18:59 Intake Total 2975 300 240 Output Total 860 925 450 Balance 2115 -625 -210 Weight 88.3 kg Intake: IV 875 Sodium Chloride 0.9% 1, 775 000 ml @ 100 mls/hr IV . Q10H ALEX Rx#:[id number] Thiamine 100 mg In Sodium 100 Chloride 0.9% 100 ml @ 200 mls/hr IVPB Q12HR ALEX Rx#:[id number] Oral 2100 300 240 Output: Urine 860 925 450 Other: Voiding Method Indwelling Catheter Urinal Urinal # Voids 1 1 - Exam GENERAL EXAM: Alert, active, comfortable in no apparent distress. HEAD: Normocephalic/atraumatic. EYES: Normal reaction of pupils, equal size. Conjunctiva pink, sclera white. NOSE: Clear with pink turbinates. THROAT: No erythema or exudates. NECK: No masses, no JVD, no thyroid enlargement, no adenopathy. CHEST: No chest wall deformity. Symmetrical expansion. LUNGS: Equal air entry with clear breath sounds bilaterally CVS: Regular rate and rhythm, normal S1 and S2, no gallops, no murmurs, no rubs ABDOMEN: Soft, nontender. No hepatosplenomegaly, normal bowel sounds, no guarding or rigidity. EXTREMITIES: No clubbing, no edema, no cyanosis, 2+ pulses and upper and lower extremities. MUSCULOSKELETAL: Muscle strength and tone normal. SPINE: No scoliosis or deformity SKIN: No rashes CENTRAL NERVOUS SYSTEM: Alert and oriented -3. No focal deficits, tone is normal in all 4 extremities. PSYCHIATRIC: Alert and oriented -3. Appropriate affect. Intact judgment and insight. - Labs CBC & Chem 7: 05/17/18 04:40 05/17/18 04:40 Labs: Abnormal Lab Results - Last 24 Hours (Table) 05/17/18 05/17/18 Range/Units 04:40 04:40 Hgb 12.7 L (13.0-17.5) gm/dL Chloride 108 H (98-107) mmol/L Creatinine 0.65 L (0.66-1.25) mg/dL Glucose 144 H (74-99) mg/dL Microbiology - Last 24 Hours (Table) 05/15/18 11:17 Gram Stain - Preliminary Sputum Sputum Culture - Preliminary Assessment and Plan Plan: #1. Acute agitation, delirium, possibly related to acute alcohol withdrawal, or polysubstance abuse, including prescription pain medications, medical marijuana. The patient is back to his normal mental state. No focal neurological deficits. #2. History of chronic alcohol abuse #3. Chronic and ongoing tobacco use #4. Right ankle injury, sustained in the fall at home, and x-ray showed a mildly displaced oblique fracture, through the mid diaphysis of the fibula. The patient is wearing a hard cast today. #5. History of traumatic brain injury #6. History of mood disorder #7. Chronic pain syndrome #8. history of polysubstance abuse Plan The patient can be discharged home today to be followed up on outpatient basis by his primary care physician and orthopedic surgery. Psychiatric evaluated the patient. He was labeled to be stable from a psychiatric standpoint. He was asked to continue his original medication. Not a candidate for inpatient psychiatric treatment.
--- NOTE | 2018-05-18 08:32 | DS ---
DISCHARGE SUMMARY DATE OF ADMISSION: 05/13/2018 DATE OF DISCHARGE: 05/17/2018 FINAL DIAGNOSES: 1. Acute severe delirium, combination of medications and alcoholic delirium tremens. 2. Acute alcoholic delirium tremens. 3. Chronic alcohol dependence. 4. . 5. Chronic pain medication. 6. Chronic obstructive pulmonary disease in a current smoker with exacerbation. 7. Chronic nicotine dependence. 8. Right bundle branch block. 9. Right high ankle sprain from a fall at home. HOSPITAL COURSE: This patient who presented previously presented with acute delirium. The patient has been drinking alcohol, also got significant pain medications. The patient was admitted to the ICU, was followed very closely. The patient finally responded initially had received IV Dilaudid and Ativan for symptom control. The patient had pain in the right foot was found to have right ankle sprain and a boot was placed. The patient did state that he had fallen at home, probably in the bathroom. The patient also responded to steroids, bronchodilators to his COPD exacerbation. Today doing much better, was in the ICU as an overflow now, tolerating a diet. The patient was counseled against smoking and alcohol. Also seen by Dr. Calvin from Psychiatry. No change in his medications. CONSULTATIONS: Dr. Nieves from Pulmonary Critical Care; Dr. Calvin from Psychiatry; Dr. Sidhu from Orthopedics. PHYSICAL EXAMINATION: On examination, temperature 97.9, pulse 60, respiratory 18, blood pressure 141/81, pulse ox 95% on room air. LUNGS: Minimal wheezing. CARDIOVASCULAR: First and second sounds normal. PSYCH: AO x3. Right foot in the brace. INVESTIGATION: White count 7.9, hemoglobin 12.7. Potassium 4.9. BUN and creatinine normal. Right foot x-ray no evidence of fracture. DISCHARGE MEDICATIONS: 1. Abilify 4 mg p.o. daily. 2. Cymbalta 60 mg p.o. daily. 3. MS Contin 60 mg p.o. t.i.d. 4. Lamictal 100 mg p.o. b.i.d. 5. Oxycodone 15 mg q.6 p.r.n. 6. Cymbalta 30 mg p.o. daily. 7. Ventolin HFA 1 to 2 puffs q.6 p.r.n. 8. Atrovent HFA 2 puffs q.i.d. 9. Naproxen 250 mg t.i.d., 30 tablets. 10.Nicotine 21 mg patch. 11.Prednisone taper. DISCONTINUED MEDICATIONS: Xanax. Follow up with Dr. Peterson in [place] in 3 days. Follow up with Dr. Sidhu in 1 week. [facility] visiting nurse. Right foot has a boot. MMODL / IJN: [id number] /
--- NOTE | 2018-05-19 10:33 | CDI ---
Documentation Clarification Form Date: 05/19/18 From: Lia Montanez Phone: If you hava a question regarding this query, please contact Rufina Joseph at [phone] between 8am and 5pm Admit Date: 05/13/2018 1:46:00 PM Patient Name: Mao Patel Visit Number: [id number] Discharge Date: 05/17/2018 3:10:00 PM ATTENTION: The Clinical Documentation Specialists (CDI) and [facility] Coding Staff appreciate your assistance in clarifying documentation. Please respond to the clarification below the line at the bottom and electronically sign. The CDI & [facility] Coding staff will review the response and follow-up if needed. Please note: Queries are made part of the Legal Health Record. If you have any questions, please contact the author of this message via ITS. Dr. Colten Dumont Conflicting documentation has been found in the medical record: Patient sustained a fall at home prior to admission with a right ankle injury. Orthopedic consult documented mildly displaced fibula fracture but no foot fracture. Documentation in Dr. Ryan's notes states fracture of the mid diaphysis of the fibula. Documentation in your progress notes and discharge summary state right ankle sprain. History/Risk Factors: Patient admitted with acute delirium due to alcohol and drugs. The patient fell at home and injured his right ankle. Clinical Indicators: Right foot pain and swelling of the right foot and ankle. Treatment: Patient was put in a boot. In your opinion, what is the most clinically appropriate diagnosis for this patient? Fracture of the right fibula Sprain of the right ankle Other explanation of clinical findings Unable to determine (no explanation for clinical findings) 1, NO Right ankle fracture 2. Right ankle sprain 3. Right mid fibula frature MTDD
== END 2018-05-17 15:10 | disposition home health service (06) | DRG 897 ==
LOC: EC 08:02 → 4SSUR 10:58 → OBSVTOIN 13:46 → 2SICU 05-14 08:56
PROVIDERS: ADMIT Hospitalist; ATTEND Hospitalist
DX: F10.231 Alcohol dependence with withdrawal delirium (principal); J44.1 Chronic obstructive pulmonary disease with (acute) exacerbation; F11.10 Opioid abuse, uncomplicated; E87.5 Hyperkalemia; S93.401A Sprain of unspecified ligament of right ankle, initial encounter; S82.491A Other fracture of shaft of right fibula, initial encounter for closed fracture; F17.200 Nicotine dependence, unspecified, uncomplicated; F12.10 Cannabis abuse, uncomplicated; F32.9 Major depressive disorder, single episode, unspecified; F41.9 Anxiety disorder, unspecified; G89.4 Chronic pain syndrome; I45.10 Unspecified right bundle-branch block; M19.90 Unspecified osteoarthritis, unspecified site; R29.6 Repeated falls; R62.7 Adult failure to thrive; J32.9 Chronic sinusitis, unspecified; Z79.899 Other long term (current) drug therapy; Z87.820 Personal history of traumatic brain injury; W19.XXXA Unspecified fall, initial encounter; Y92.009 Unspecified place in unspecified non-institutional (private) residence as the place of occurrence of the external cause
CPT/HCPCS: 36415; 70450; 71045; 71046; 80048; 80053; 80320; 81003; 82140; 82550; 82553; 83735; 83880; 84100; 84484; 85025; 85610; 85730; 87070; 87077; 87186; 87205; 93005; 94640; 96360; 99285

== ENCOUNTER 2018-09-14 20:56 | Observation (INO) | payer MEDICARE ==
[2018-09-14 21:20] LABS: Glucose,Whole Blood 179 mg/dL (75-99)
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
--- NOTE | 2018-09-14 22:02 | XR ---
EXAMINATION TYPE: XR chest 2V DATE OF EXAM: 09/14/2018 COMPARISON: 05/15/2018 HISTORY: Weakness TECHNIQUE: Frontal and lateral views of the chest are obtained. FINDINGS: There is no heart failure nor confluent pneumonic infiltrate. Costophrenic angles are christel r. There is old healed left-sided rib fractures. IMPRESSION: No active cardiopulmonary disease. No change.
[2018-09-14 22:03] LABS: Basophils # (A) 0.1 k/uL (0-0.2); Basophils % (A) 1 %; Eosinophils # (A) 0.3 k/uL (0-0.7); Eosinophils % (A) 2 %; HCT 48.5 % (39.0-53.0); HGB 15.1 gm/dL (13.0-17.5); Lymphocytes % (A) 16 %; MCH 28.4 pg (25.0-35.0); MCHC 31.2 g/dL (31.0-37.0); Mean Platelet Volume 7.1; Monocytes # (A) 0.6 k/uL (0-1.0); Monocytes % (A) 4 %; Neutrophils # (A) 9.9 k/uL (1.3-7.7); Neutrophils % (A) 76 %; Platelet Count 357 k/uL (150-450); RBC 5.33 m/uL (4.30-5.90); RDW 15.3 % (11.5-15.5); WBC 13.1 k/uL (3.8-10.6)
[2018-09-14] MEDS ORDERED: SODIUM CHLORIDE 0.9% 1,000 ML IV ONE ×2 (22:06→23:16)
[2018-09-14 22:10] LABS: ALT 11 U/L (21-72); AST 23 U/L (17-59); Albumin 4.3 g/dL (3.5-5.0); Alcohol <10 mg/dL; Alkaline Phosphatase 84 U/L (38-126); Anion Gap 10 mmol/L; Blood Urea Nitrogen 14 mg/dL (9-20); Calcium 9.4 mg/dL (8.4-10.2); Carbon Dioxide 28 mmol/L (22-30); Chloride 98 mmol/L (98-107); Glucose 159 mg/dL (74-99); Magnesium 2.2 mg/dL (1.6-2.3); Potassium 4.3 mmol/L (3.5-5.1); Sodium 136 mmol/L (137-145); Total Bilirubin 0.4 mg/dL (0.2-1.3); Total Protein 7.1 g/dL (6.3-8.2)
[2018-09-14 22:35] LABS: Partial Thromboplastin Time 28.2 sec (22.0-30.0); Prothrombin Time 10.8 sec (9.0-12.0)
[2018-09-14 22:40] LABS: VBG PH 7.37 (7.31-7.41)
--- NOTE | 2018-09-14 23:25 | CT ---
EXAM: CT Head Without Intravenous Contrast CLINICAL HISTORY: weakness/ confusion. Has had 4 falls today TECHNIQUE: Axial computed tomography images of the head/brain without intravenous contrast. DLP is 1156.4 mGy-cm. This CT exam was performed using one or more of the following dose reduction techniques: automated exposure control, adjustment of the mA and/or kV according to patient size, and/or use of iterative reconstruction technique. COMPARISON: 05/13/18 FINDINGS: Brain: Unremarkable. No hemorrhage. No significant white matter disease. No edema. Ventricles: Unremarkable. No ventriculomegaly. Bones/joints: Unremarkable. No acute fracture. Soft tissues: Unremarkable. Sinuses: Unremarkable as visualized. No acute sinusitis. Mastoid air cells: Unremarkable as visualized. No mastoid effusion. IMPRESSION: No acute intracranial findings or substantial change
[2018-09-15 00:01] LABS: Appearance,Urine Clear (Clear); Bilirubin,Urine Negative (Negative); Blood,Urine Negative (Negative); Color,Urine Light Yellow; Glucose,Urine (UA) Negative (Negative); Ketones,Urine Negative (Negative); Leukocyte Esterase,Urine Negative (Negative); Nitrite,Urine Negative (Negative); PH, Urine 5.5 (5.0-8.0); Protein,Urine Negative (Negative); Specific Gravity,Urine 1.007 (1.001-1.035); Urobilinogen,Urine <2.0 mg/dL (<2.0)
[2018-09-15 00:25] LABS: Amphetamine Screen,Urine Not Detected (NotDetected); Barbiturate Screen,Urine Not Detected (NotDetected); Benzodiazepines Screen,Urine Not Detected (NotDetected); Cocaine Screen,Urine Not Detected (NotDetected); Methadone Screen, Urine Not Detected (NotDetected); Opiate Screen,Urine Detected (NotDetected); Oxycodone Screen, Urine Detected (NotDetected); Phencyclidine Screen,Urine Not Detected (NotDetected); Tricyclic Antidepressant,Urine Not Detected (NotDetected); Urn Cannabinoid Scrn Detected (NotDetected)
[2018-09-15] MEDS ORDERED: SODIUM CHLORIDE 0.9% 500 ML 500 ML IV STA (00:41)
[2018-09-15] MEDS ORDERED: cefTRIAXone IN SWFI 1,000 MG/10 ML SYRINGE IVP STA (00:41)
[2018-09-15] MEDS ORDERED: NALOXONE 0.4 MG/ML 1 ML VIAL IV PRN (02:00)
[2018-09-15] MEDS ORDERED: ALBUTEROL NEBULIZED 2.5 MG/3 ML INHALATION PRN (02:02)
[2018-09-15 03:34] VITALS: BMI 30.7
[2018-09-15] MEDS ORDERED: MORPHINE SULFATE ER 30 MG TABLET PO SCH (06:00)
[2018-09-15 06:09] VITALS: BP 150/73; RESP 20; TEMP 98.4
[2018-09-15 07:34] VITALS: PULSE 80
[2018-09-15] MEDS ORDERED: IPRATROPIUM 0.5 MG/2.5 ML NEBU INHALATION SCH (08:00)
[2018-09-15] MEDS: NAPROXEN 250 MG TAB PO SCH ×2 (08:04→08:09)
[2018-09-15] MEDS ORDERED: NICOTINE 21MG/24HR PATCH TRANSDERM SCH (09:00)
[2018-09-15] MEDS ORDERED: DULoxetine HCL 30 MG CAPSULE.DR PO SCH (09:00)
[2018-09-15] MEDS ORDERED: FAMOTIDINE 20 MG TAB PO SCH (09:00)
[2018-09-15] MEDS ORDERED: predniSONE 10 MG TAB PO SCH (09:00)
[2018-09-15] MEDS ORDERED: ARIPiprazole 2 MG TAB PO SCH (09:00)
[2018-09-15] MEDS ORDERED: lamoTRIgine 100 MG TAB PO SCH (09:00)
--- NOTE | 2018-09-15 09:29 | P.PN ---
Progress Note - Text Progress Note Date: 09/15/18 Consult request received this morning. Went to see patient at 920am and was informed by RN that patient had left AMA more than an hour ago. Will cancel consult request at this time. Please call back with questions.
[2018-09-15] MEDS ORDERED: DULoxetine HCL 60 MG CAPSULE.DR PO SCH (21:00)
--- NOTE | 2018-09-16 15:59 | HP ---
HISTORY AND PHYSICAL HISTORY/PHYSICAL AND DISCHARGE SUMMARY: DATE OF ADMISSION: 09/15/2018. DATE LEFT AGAINST MEDICAL ADVICE: 09/15/2018. HOSPITAL COURSE: This patient was admitted through the ER. The patient was not seen by me, came to the early hours to the floor and patient decided to LEAVE AGAINST MEDICAL ADVICE. The patient was not seen by me. CALIN / SERGIO: [id number] /
--- NOTE | 2018-09-16 20:30 | DS ---
DISCHARGE SUMMARY DATE OF ADMISSION: 09/15/2018. DATE LEFT AGAINST MEDICAL ADVICE: 09/15/2018. HOSPITAL COURSE: This patient was not seen by me, admitted from the ER. The patient left AGAINST MEDICAL ADVICE yesterday morning, not present when I came to see the patient. Nurse called me. Copy to Dr. Peterson Kinzers. MMSAEL / MIREYAN: [id number] /
== END 2018-09-15 08:55 | disposition left against medical advice (07) ==
LOC: EC 20:56 → 3NMEDONC 09-15 02:00
PROVIDERS: ADMIT Hospitalist; ATTEND Hospitalist
DX: E87.2 Acidosis (principal); R41.82 Altered mental status, unspecified; R29.6 Repeated falls; R41.3 Other amnesia; M54.9 Dorsalgia, unspecified; M54.2 Cervicalgia; J43.9 Emphysema, unspecified; F41.9 Anxiety disorder, unspecified; F32.9 Major depressive disorder, single episode, unspecified; Z53.21 Procedure and treatment not carried out due to patient leaving prior to being seen by health care provider; Z87.820 Personal history of traumatic brain injury; W19.XXXA Unspecified fall, initial encounter; Z79.899 Other long term (current) drug therapy; Z79.891 Long term (current) use of opiate analgesic; F17.200 Nicotine dependence, unspecified, uncomplicated
CPT/HCPCS: 96361 ×2; 96374; 99285; 36415 ×2; 94640; 94760; 93005; 80053; 82140; 82803; 83605; 83735; 84443; 84484; 85025; 85610; 85730; 81003; 80306; 71046; 70450; G0378; G0480; S4990; J0696; J7512; 80320